=== PATIENT | female | born 1980 | race Caucasian/White ===

== ENCOUNTER 2016-10-02 01:12 | Emergency (ER) | payer SELFPAY ==
[2016-10-02 02:02] LABS: Basophils % (Auto) 0.5 % (0.0-1.8); Hematocrit 32.9 % (30.3-42.9); Hemoglobin 10.1 gm/dl (10.1-14.3); Mean Corpuscular HGB Conc 31 % (30-34); Platelet Count 324 K/mm3 (140-440); Red Blood Count 4.98 M/mm3 (3.65-5.03); White Blood Count 6.5 K/mm3 (4.5-11.0)
[2016-10-02 02:11] LABS: Mean Corpuscular Hemoglobin 20 pg (28-32); Mean Corpuscular Volume 66 fl (79-97); Red Cell Distribution Width 22.5 % (13.2-15.2)
[2016-10-02 02:18] LABS: Anion Gap 18 mmol/L; Blood Urea Nitrogen 8 mg/dL (7-17); Calcium 8.8 mg/dL (8.4-10.2); Carbon Dioxide 25 mmol/L (22-30); Chloride 98.1 mmol/L (98-107); Glucose 103 mg/dL (65-100); Potassium 3.9 mmol/L (3.6-5.0); Sodium 137 mmol/L (137-145)
[2016-10-02 04:58] VITALS: BP 150/85
--- NOTE | 2016-10-05 15:09 | ED Elopement Review ---
ED Pt Elopement review - Results review Lab results: Laboratory Tests 10/02/16 10/02/16 10/02/16 01:47 01:47 04:47 WBC 6.5 RBC 4.98 Hgb 10.1 Hct 32.9 MCV 66 L MCH 20 L MCHC 31 RDW 22.5 H Plt Count 324 Lymph % (Auto) 32.9 [place] % (Auto) 9.3 H Eos % (Auto) 4.0 Baso % (Auto) 0.5 Lymph # 2.2 [place] # 0.6 Eos # 0.3 Baso # 0.0 Seg Neutrophils % 53.3 Seg Neutrophils # 3.5 Sodium 137 Potassium 3.9 Chloride 98.1 Carbon Dioxide 25 Anion Gap 18 BUN 8 Creatinine 0.5 L Estimated GFR > 60 BUN/Creatinine Ratio 16.00 Glucose 103 H Calcium 8.8 Troponin T < 0.010 < 0.010 10/02/16 07:19 WBC RBC Hgb Hct MCV MCH MCHC RDW Plt Count Lymph % (Auto) [place] % (Auto) Eos % (Auto) Baso % (Auto) Lymph # [place] # Eos # Baso # Seg Neutrophils % Seg Neutrophils # Sodium Potassium Chloride Carbon Dioxide Anion Gap BUN Creatinine Estimated GFR BUN/Creatinine Ratio Glucose Calcium Troponin T < 0.010 - Call Back decision Pt Call Back Decision: No action required
== END 2016-10-02 12:36 | disposition left against medical advice (07) ==
LOC: ED 01:12
DX: R07.9 Chest pain, unspecified (principal); R06.02 Shortness of breath; R42 Dizziness and giddiness; R11.0 Nausea; Z53.21 Procedure and treatment not carried out due to patient leaving prior to being seen by health care provider
CPT/HCPCS: 36415; 80048; 84484; 85025; 93005; 93010